=== PATIENT | female | born 1990 | race Caucasian/White ===

== ENCOUNTER 2017-07-28 02:59 | Emergency (ER) | payer SELFPAY ==
--- NOTE | 2017-07-28 07:07 | ER ---
ADMIT: 07/28/2017 RM/LOC: ER [facility] MR#: [id number] [place], [place] [id number] [address] [address] Emergency Room Report SEX: F AGE: 27 : 1990 DATE: 07/28/2017 The patient is a 27-year-old female, who states while incarcerated, she was diagnosed with gallbladder disease. States she had a Big Mac tonight, developed right upper quadrant pain radiating to her back associated with nausea. No vomiting, fevers, chills, or family history of gallbladder disease. Exam remarkable for nontoxic, afebrile female. Tender right upper quadrant. Normal CBC, CMP, lipase. CRP minimally elevated at 0.72. Negative hCG and UA. The patient received a liter of fluid, Zofran, Toradol, Protonix, Dilaudid with relief of pain. Home with anticipatory guidance with low-fat low-protein diet. Outpatient ultrasound. Follow up Dr. Womack for results and possible HIDA scan. Amish Borden MD/ rico JOB #: [id number] CC: Amish Borden MD, Attending Physician Griffin Womack MD
== END 2017-07-28 04:35 | disposition home or self-care (01) ==
LOC: ER 02:59
DX: K80.50 Calculus of bile duct without cholangitis or cholecystitis without obstruction (principal); I10 Essential (primary) hypertension; E03.9 Hypothyroidism, unspecified; F31.9 Bipolar disorder, unspecified; Z79.899 Other long term (current) drug therapy